=== PATIENT | male | born 2000 | race Two or more races ===

== ENCOUNTER 2024-10-11 10:49 | Emergency (ER) | payer SELFPAY ==
--- NOTE | ~2024-10-11 | US_ITS ---
EXAMINATION: US ABDOMEN LIMITED CLINICAL INFORMATION: Epigastric pain. COMPARISON: None available. TECHNIQUE: Real-time imaging of the right upper quadrant abdominal viscera. FINDINGS: LIVER: No dedicated imaging of the liver was performed. However, images of the liver show increased echogenicity. GALLBLADDER: The gallbladder is partially distended without evidence of stones, sludge, polyps, wall thickening or pericholecystic fluid. COMMON BILE DUCT: Normal in caliber measuring 0.25 cm in diameter. US/US abdomen limited IMPRESSION: Fatty liver. Unremarkable gallbladder. Electronically signed by: Joni Vuong MD 10/11/2024 01:41 PM EDT
[2024-10-11 12:17] VITALS: BP 132/91; PULSE 64; RESP 16; TEMP 36.8; O2SAT 98; BMI 26.0
--- NOTE | 2024-10-11 12:30 | ED_ITS ---
HPI - General Adult General Chief complaint: Abdominal Pain Stated complaint: Upper abd pain Time Seen by Provider: 10/11/24 12:43 Source: patient Mode of arrival: ambulatory Limitations: no limitations History of Present Illness ED Provider: Reese Kwan HPI narrative: 24 yold male healathy presents to the Ed for 6 months of epigastric abdominal pain with aicd burning sensation. Patient also states small lump in epigastsric abdominal area for month that sometimes increases in size. patient denies any weight loss, constipation, nausea, vomitting, or intractable pain. patient states lump is reproducible Related Data Previous Rx's ?Medication ?Instructions ?Recorded famotidine 40 mg tablet (Pepcid) 40 mg PO DAILY 10 day s #10 tabs 10/11/24 Allergies Allergy/AdvReac Type Severity Reaction Status Date / Time No Known Allergies Allergy Verified 10/11/24 12:21 Review of Systems 2 Review of Systems: epigastric acid burning sensation adn small lump Yes all other systems are reviewed and are negative PMFSH Social History Social History Advance Directives: No Advance Directives Information Provided: No Physical Exam ED Vital Signs: Vital Signs - 24 hr 10/11/24 16:36 Temperature 98.2 F Pulse Rate 64 Respiratory Rate 16 Blood Pressure 132/91 H Pulse Oximetry 98 Oxygen Delivery Method Room Air BMI result Body Mass Index 26.0 Const General: cooperative, healthy appearing, comfortable, no acute distress, well developed, alert, awake and Physically active Orientation/consciousness: patient oriented x3 HENMT Head: Yes normal to inspection, Yes No palpable skull fracture present, Yes normocephalic and Yes atraumatic Ears: hearing grossly normal bilaterally, external ears normal, TM's normal bilaterally, TM normal on the right and TM normal on the left Mouth: Normal oral and palatal mucosa present, lip normal and tongue normal Throat: Yes posterior oropharynx normal, Yes tonsils normal and Yes uvula midline Eyes General: appearance normal, both eyes and all related structures Neck Neck: Yes normal visual inspection, Yes full ROM, Yes no lymphadenopathy, Yes no meningeal signs, Yes trachea midline, Yes supple, No anterior neck swelling and No lymphadenopathy Chest Chest palpation & inspection: normal inspection of the chest and normal palpation of entire chest wall Resp Effort & Inspection: normal respiratory effort and able to speak in complete sentences Auscultation: clear to auscultation bilaterally Cardio Jugular venous distension: no JVD Heart sounds: S1 normal heart sound present and S2 normal heart sound present GI Inspection: Yes normal to inspection Palpation (GI): Soft to palpation, not firm, nontender, no guarding and not rigid Abdomen image: 2 1. dime size reproducible lump. negative for erythema, hard mass, ecchymosis, tenderness, lesions, rash, or crepitus General: Yes no CVA tenderness Back/Spine/Pelvis Back: no CVA tenderness and No back tenderness Skin General skin exam: no rashes or lesions noted, elasticity normal and turgor normal Neuro General: patient oriented x3, gait normal, tone normal, moves all extremities, Normal light touch and pain sensation, no meningeal signs, no focal motor deficits and CN's II-XI intact bilaterally Extrem General: Yes normal to inspection, Yes full ROM and Yes capillary refill normal Psych Appearance: grossly normal, well kempt and not disheveled Course Course Course Narrative: RME: 24-year-old male presents to ED for 6 months of epigastric pain with acid regurgitation. Patient states pain is worse after eating. Patient denies any nausea but no vomiting. Patient states feeling ball in epigastric area. Patient denies any constipation. Dime size lump felt on epigastric area that is not hard or tenderness. abdomen soft and bening. Labs ULtrasound are pending Medical Decision Making Medical Decision Making [facility] Narrative: 24 yold male presents to the ED for epigastric abdominal pain, nausea, acid burning sensation, pain after eating for the past 6 months. Patient also feels small lump in epigastric area for the past 6 months. patient denies any lower abdominal pain, dysuria, hematuria, fever, chills, nuasea, vomitting, or testicular pain. Physical exam indicate small abdominal wall hernia. 4:07pm: Ultrasound shows fatty liver negative for signs of cholecystitis. Liver enzymes slightly elevated. Patient is educated on worrisome signs informed to return to the ED immediately. Patient informed to follow up with primary care provider. Not suspecting incarcerated hernia, small bowel obstruction, peritonitis, pancreatic/gallbladder cancer, ID or any other life threatening etiology. Differential Diagnosis Differential Diagnoses: The differential diagnosis associated with the presentation includes (Cholecystitis, fatty liver, acid reflux, hiatal hernia) Admission/Observation Consideration of admission/observation: Escalation of care including admission/observation considered Lab Data [facility] Lab Attestation statement: I reviewed the patient's lab results. 10/11/24 12:55 10/11/24 12:55 Labs: Lab Results 10/11/24 Range/Units 12:55 WBC 6.8 (4.8-10.8) X10*3/uL RBC 4.95 (4.60-5.80) X10*6/uL Hgb 16.7 (14.0-18.0) g/dl Hct 46.6 (42.0-52.0) % MCV 94.1 (80.0-98.0) fL MCH 33.7 H (27.0-33.0) pg MCHC 35.8 (31.0-36.0) g/dl RDW 12.4 (11.0-16.0) % Plt Count 221 (160-400) X10*3/uL MPV 11.3 (9.4-12.4) fL Immature Gran % (Auto) 0.1 (0.0-0.4) % Neut % (Auto) 56.3 (45-73) % Lymph % (Auto) 27.8 (20-40) % Benzie % (Auto) 12.9 H (2-11) % Eos % (Auto) 2.5 (0-4) % Baso % (Auto) 0.4 (0-2) % Lymph # (Auto) 1.9 (1.2-4.9) X10*3/uL Benzie # (Auto) 0.9 (0.1-1.2) X10*3/uL Eos # (Auto) 0.2 (0.0-0.4) X10*3/uL Baso # (Auto) 0.0 (0.0-0.2) X10*3/uL Abs Immat Gran (auto) 0.01 (0.00-0.03) X10*3/uL Absolute Neuts (auto) 3.8 (2.0-8.3) x10*3/uL Absolute Nucleated RBC 0.000 (0.0-0.012) X10*3/uL Nucleated RBC % (auto) 0.0 (0.0-0.2) /100WBC Sodium 139 (135-145) mmol/L Potassium 3.5 (3.3-5.1) mmol/L Chloride 104 (96-108) mmol/L Carbon Dioxide 27 (22-29) mmol/L Anion Gap 12 (12-20) BUN 11 (9-16) mg/dL Creatinine 0.95 (0.5-1.4) mg/dL Estim Creat Clear Calc 125.5 Estimated GFR > 60 Random Glucose 95 (60-115) mg/dL Calcium 9.6 (8.4-10.2) mg/dL Total Bilirubin 2.1 H (0.0-1.0) mg/dL AST 70 H (5-37) U/L ALT 172 H (0-40) U/L Alkaline Phosphatase 78 (39-117) U/L Total Protein 7.3 (6.5-8.0) g/dL Albumin 4.6 (3.5-5.0) g/dL Lipase 44 (8-78) U/L Independent Interpretation I performed an independent interpretation of an: Ultrasound Radiology Impression Discussion of test interpretation with radiology: I have reviewed the radiologist's reading. Independent Historian Clinical information obtained from an independent historian. History obtained from or confirmed by: Other (patient) Prescription Management I considered prescription management with: Pain Medication Discharge Plan Discharge Clinical Impression: Fatty liver, GERD (gastroesophageal reflux disease), Hernia Patient Disposition: Home, Self-Care Instructions: Hiatal Hernia (ED), GERD (Gastroesophageal Reflux Disease) (ED), Non-Alcoholic Fatty Liver Disease (ED) Additional Instructions: Recommend follow up with primary care provider. Ultrasound shows fatty liver. Labs shows slight elevation of liver enzymes. Recommend follow-up with also sanding machine operator or tender. Physical exam shows possible small abdominal hiatal hernia. Return to the ED for any profuse abdominal pain, nausea, vomiting, swelling/distention, fever, chills, inability tolerate solid food/liquid, or any other concerning symptoms. EXAMINATION: US ABDOMEN LIMITED CLINICAL INFORMATION: Epigastric pain. COMPARISON: None available. TECHNIQUE: Real-time imaging of the right upper quadrant abdominal viscera. FINDINGS: LIVER: No dedicated imaging of the liver was performed. However, images of the liver show increased echogenicity. GALLBLADDER: The gallbladder is partially distended without evidence of stones, sludge, polyps, wall thickening or pericholecystic fluid. COMMON BILE DUCT: Normal in caliber measuring 0.25 cm in diameter. US/US abdomen limited IMPRESSION: Fatty liver. Unremarkable gallbladder. Electronically signed by: Joni Vuong MD 10/11/2024 01:41 PM EDT Prescriptions: New famotidine [Pepcid] 40 mg tablet 40 mg PO DAILY 10 Days Qty: 10 0RF Referrals: [facility] [place] G[facility] Services [Provider Group, Gastroenterology] - 2 days Referral Note: Fatty liver. Abdominal pain Clinical Impression: Fatty liver; GERD (gastroesophageal reflux disease) [facility] [place] General Surgeons [Provider Group, General Surgery] - 2 days Referral Note: Epigastric small lump exam indicates hernia. Clinical Impression: Fatty liver; Hernia; GERD (gastroesophageal reflux disease) Stand Alone Forms: Work/School Release Interventions: ED Discharge Assessment Last Done: 10/11/24 16:36 Discharge Date/Time: 10/11/24 16:39 Print Language: Czech
--- NOTE | 2024-10-11 12:41 | PC.NURSE ---
SUAD Kwan examining patient's abdomen in triage room. Staff medical radiation therapist present.
[2024-10-11 13:18] LABS: MANUAL DIFF FLAG NO
[2024-10-11 13:20] LABS: Hematocrit 46.6 % (42.0-52.0); Hemoglobin 16.7 g/dl (14.0-18.0); Imm Gran Abs Auto 0.01 X10*3/uL (0.00-0.03); Imm Gran Pct Auto 0.1 % (0.0-0.4); Lymphocytes Absolute Auto 1.9 X10*3/uL (1.2-4.9); Mean Corpuscular HGB Conc 35.8 g/dl (31.0-36.0); Mean Corpuscular Hemoglobin 33.7 pg (27.0-33.0); Mean Corpuscular Volume 94.1 fL (80.0-98.0); NRBC Abs Auto 0.000 X10*3/uL (0.0-0.012); NRBC Pct Auto 0.0 /100WBC (0.0-0.2); Platelet Count 221 X10*3/uL (160-400); Red Blood Count 4.95 X10*6/uL (4.60-5.80); White Blood Count 6.8 X10*3/uL (4.8-10.8)
[2024-10-11 13:33] LABS: Alanine Aminotransferase 172 U/L (0-40); Albumin Level 4.6 g/dL (3.5-5.0); Alkaline Phosphatase 78 U/L (39-117); Anion Gap 12 (12-20); Aspartate Amino Transferase 70 U/L (5-37); Blood Urea Nitrogen 11 mg/dL (9-16); Calcium 9.6 mg/dL (8.4-10.2); Carbon Dioxide 27 mmol/L (22-29); Chloride 104 mmol/L (96-108); Creatinine Clr Calc Pharmacy 125.5; Estimated Glomerular Filt Rate > 60; Lipase 44 U/L (8-78); Potassium 3.5 mmol/L (3.3-5.1); Sodium 139 mmol/L (135-145); Total Protein 7.3 g/dL (6.5-8.0)
[2024-10-11 16:36] VITALS: BP 132/91; PULSE 64; RESP 16; TEMP 36.8; O2SAT 98
== END 2024-10-11 16:39 | disposition home or self-care (01) ==
PROVIDERS: Physician Assistant; Emergency Provider Emergency Medicine
DX: K76.0 Fatty (change of) liver, not elsewhere classified (principal); K21.9 Gastro-esophageal reflux disease without esophagitis; K44.9 Diaphragmatic hernia without obstruction or gangrene; R10.10 Upper abdominal pain, unspecified
CPT/HCPCS: 36415; 76705; 80053; 83690; 85025; 99282

== ENCOUNTER → 2024-10-11 12:31 | Outpatient (BNV) | payer SELFPAY | PROVIDERS: Emergency Provider Emergency Medicine; Visit Provider Radiology Diagnostic Radiology | DX: K76.0 Fatty (change of) liver, not elsewhere classified (principal) | CPT/HCPCS: 76705 ==